=== PATIENT | male | born 1945 | race Caucasian/White ===

== ENCOUNTER 2018-06-22 15:27 | Emergency (ER) | payer MEDICARE ==
[~2018-06-22] VITALS: Ht 188 cm; Wt 90.7 kg
[2018-06-22 15:37] VITALS: BP 107/70
== END 2018-06-22 17:50 | disposition home or self-care (01) ==
LOC: ER 15:29
DX: S61.215D Laceration without foreign body of left ring finger without damage to nail, subsequent encounter (principal); X58.XXXD Exposure to other specified factors, subsequent encounter

== ENCOUNTER 2021-06-16 20:57 | Inpatient (IN) | payer MEDICARE, OTHER ==
[~2021-06-16] VITALS: Ht 188 cm; Wt 78.7 kg
[2021-06-16] MEDS ORDERED: dilTIAZem 25 MG/5 ML VIAL IV ONE (21:30)
[2021-06-16 22:13] LABS: Basophils # (auto) 0.1 10 ^3/uL (0-0.2); Basophils % (auto) 0.5 % (0.0-2.0); Eosinophils # (auto) 0 10 ^3/uL (0-0.8); Eosinophils % (auto) 0.1 % (0.0-7.0); Hematocrit 43.9 % (41.0-53.0); Hemoglobin 14.7 g/dL (13.5-17.5); Lymphocytes # (auto) 1.5 10 ^3/uL (0.4-5.4); Lymphocytes % (auto) 12.7 % (10.0-50.0); Mean Corpuscular Hemoglobin 29.4 pg (28.0-32.0); Mean Corpuscular Hgb Conc. 33.4 g/dL (32.0-36.0); Monocytes # (auto) 0.9 10 ^3/uL (0-1.3); Monocytes % (auto) 7.9 % (0.0-12.0); Neutrophils # (auto) 9.5 10 ^3/uL (1.6-8.6); Neutrophils % (auto) 78.8 % (37.0-80.0); Red Blood Cells 4.99 10^6/uL (4.5-5.90); Red Cell Distribution Width 15.8 % (11.8-14.3); White Blood Cell 12.1 10^3/uL (4.4-10.8)
[2021-06-16 22:26] LABS: Albumin 2.9 g/dL (3.4-5.0); Potassium 4.8 mmol/L (3.5-5.1)
[2021-06-16 22:30] LABS: Lactic Acid w/Reflex 2.2 mmol/L (0.4-2.0)
[2021-06-16 22:35] LABS: BUN/Creatinine Ratio 30.1; Bilirubin, Total 0.5 mg/dL (0.2-1.0); Calcium 8.5 mg/dL (8.5-10.1); Magnesium 2.2 mg/dL (1.6-2.6); Total Protein 6.9 g/dL (6.4-8.2)
[2021-06-16] MEDS ORDERED: DOXYCYCLINE 100MG/250ML 250 ML IV ONE (22:45)
[2021-06-16] MEDS ORDERED: ASPirin 325 MG TAB PO ONE (22:45)
[2021-06-16] MEDS ORDERED: PIPERACILLIN-TAZOB 3.375GM 100 ML IV ONE (22:45)
[2021-06-17] VITALS (20 sets, daily range): BP systolic 105–148; BP diastolic 61–84
[2021-06-17] LABS: Urine Bacteria NONE SEEN /hpf (None Seen); Urine Blood Negative /uL (Negative); Urine Hyaline Cast FEW /lpf (0 - 2); Urine Specific Gravity 1.014 (1.001-1.035); Urine WBC <1 /hpf (0 - 3)
[2021-06-17] MEDS ORDERED: SODIUM CHLORIDE 0.9% 500 ML IV ONE ×2 (01:45→03:45)
[2021-06-17] MEDS ORDERED: MORPHINE SULFATE INJECTION 2 MG/2 ML SYRG IV PRN (01:45)
[2021-06-17] MEDS ORDERED: ONDANSETRON HCL 4 MG/2 ML VIAL IV PRN (01:45)
[2021-06-17] MEDS: ENOXAPARIN SOD 100 MG/1 ML SYRINGE SC SCH ×2 (02:14→14:35)
[2021-06-17] MEDS ORDERED: SODIUM CHLORIDE 0.9% 1,000 ML IV SCH ×4 (02:30→11:30)
[2021-06-17] MEDS ORDERED: AMIODARONE HCL 150 MG in D5W 5% 100 ML IV ONE (07:00)
[2021-06-17] MEDS ORDERED: AMIODARONE 450mg/250ml AE 250 ML IV SCH ×2 (07:15→13:15)
[2021-06-17 08:22] LABS: Basophils # (auto) 0 10 ^3/uL (0-0.2); Basophils % (auto) 0.3 % (0.0-2.0); Eosinophils # (auto) 0 10 ^3/uL (0-0.8); Eosinophils % (auto) 0.2 % (0.0-7.0); Hematocrit 41.9 % (41.0-53.0); Lymphocytes # (auto) 1.4 10 ^3/uL (0.4-5.4); Lymphocytes % (auto) 13.4 % (10.0-50.0); Mean Corpuscular Hemoglobin 29.8 pg (28.0-32.0); Mean Corpuscular Hgb Conc. 33.4 g/dL (32.0-36.0); Mean Corpuscular Volume 89.3 fL (80.0-100.0); Monocytes # (auto) 0.7 10 ^3/uL (0-1.3); Monocytes % (auto) 6.6 % (0.0-12.0); Neutrophils # (auto) 8.2 10 ^3/uL (1.6-8.6); Neutrophils % (auto) 79.5 % (37.0-80.0); Nucleated Red Blood Cells % 0.1 %; Red Blood Cells 4.69 10^6/uL (4.5-5.90); White Blood Cell 10.4 10^3/uL (4.4-10.8)
[2021-06-17 08:42] LABS: Potassium 4.2 mmol/L (3.5-5.1)
[2021-06-17 08:50] LABS: Albumin 2.4 g/dL (3.4-5.0); BUN/Creatinine Ratio 31.7; Bilirubin, Total 0.7 mg/dL (0.2-1.0); Calcium 8.1 mg/dL (8.5-10.1)
[2021-06-17] MEDS ORDERED: cefTRIAXone 1GM/50ML D5W 50 ML IV SCH (09:00)
[2021-06-17] MEDS ORDERED: FUROSEMIDE 40 MG/4 ML VIAL IV ONE (09:45)
[2021-06-17] MEDS: AZITHROMYCIN 500MG/ 250ML 250 ML IV SCH (10:32)
[2021-06-17] MEDS: guaiFENesin 200 MG/10 ML UD PO PRN ×2 (13:47→19:55)
[2021-06-17] MEDS: AMIODARONE 450mg/250ml AE 250 ML IV SCH (14:18)
[2021-06-17] MEDS ORDERED: LORazepam 2MG/ML-1ML VIAL IV ONE (14:45)
[2021-06-17] MEDS ORDERED: DIGOXIN (250MCG/ML) 2 ML AMPULE IV ONE (17:15)
[2021-06-17] MEDS ORDERED: metOLazone 5 MG TAB PO ONE (17:15)
[2021-06-17] MEDS: FUROSEMIDE 40 MG/4 ML VIAL IV SCH (18:11)
[2021-06-17] MEDS ORDERED: CARVEDILOL 3.125 MG TAB PO SCH (22:00)
[2021-06-18] MEDS: guaiFENesin 200 MG/10 ML UD PO PRN ×3 (02:07→21:28)
[2021-06-18 05:00] VITALS: BP 111/68
[2021-06-18] MEDS: FUROSEMIDE 40 MG/4 ML VIAL IV SCH ×2 (05:05→10:47)
[2021-06-18] MEDS: ENOXAPARIN SOD 100 MG/1 ML SYRINGE SC SCH ×2 (05:06→18:25)
[2021-06-18] MEDS: AMIODARONE 450mg/250ml AE 250 ML IV SCH ×2 (05:09→20:33)
[2021-06-18 06:01] LABS: Basophils # (auto) 0 10 ^3/uL (0-0.2); Basophils % (auto) 0.2 % (0.0-2.0); Eosinophils # (auto) 0 10 ^3/uL (0-0.8); Eosinophils % (auto) 0.2 % (0.0-7.0); Hematocrit 41.2 % (41.0-53.0); Hemoglobin 13.7 g/dL (13.5-17.5); Lymphocytes # (auto) 1.5 10 ^3/uL (0.4-5.4); Lymphocytes % (auto) 14.7 % (10.0-50.0); Mean Corpuscular Hemoglobin 29.4 pg (28.0-32.0); Mean Corpuscular Hgb Conc. 33.3 g/dL (32.0-36.0); Mean Corpuscular Volume 88.3 fL (80.0-100.0); Monocytes # (auto) 0.6 10 ^3/uL (0-1.3); Monocytes % (auto) 6.1 % (0.0-12.0); Neutrophils # (auto) 8.3 10 ^3/uL (1.6-8.6); Neutrophils % (auto) 78.8 % (37.0-80.0); Red Blood Cells 4.66 10^6/uL (4.5-5.90); Red Cell Distribution Width 15.7 % (11.8-14.3); White Blood Cell 10.5 10^3/uL (4.4-10.8)
[2021-06-18 06:31] LABS: Potassium 4.4 mmol/L (3.5-5.1)
[2021-06-18 06:37] LABS: BUN/Creatinine Ratio 32.3; Calcium 8.2 mg/dL (8.5-10.1)
[2021-06-18 08:00] VITALS: BP 121/74
[2021-06-18 09:00] VITALS: BP 121/74
[2021-06-18] MEDS ORDERED: DIGOXIN 0.25 MG TAB PO ONE (09:15)
[2021-06-18] MEDS: AZITHROMYCIN 500MG/ 250ML 250 ML IV SCH (10:47)
[2021-06-18 10:48] LABS: INR 1.44 (0.9-1.15)
[2021-06-18] MEDS: SPIRONOLACTONE 25 MG TAB PO SCH (10:48)
[2021-06-18] MEDS: CARVEDILOL 3.125 MG TAB PO SCH ×2 (10:48→21:23)
[2021-06-18 13:00] VITALS: BP 101/70
[2021-06-18] MEDS ORDERED: metOLazone 5 MG TAB PO ONE (15:00)
[2021-06-18 17:00] VITALS: BP 113/73
[2021-06-18] MEDS: LORazepam 0.5 MG TAB PO PRN (21:28)
[2021-06-18 22:00] VITALS: BP 97/66
[2021-06-19] VITALS (7 sets, daily range): BP systolic 96–109; BP diastolic 46–72
[2021-06-19] MEDS: ENOXAPARIN SOD 100 MG/1 ML SYRINGE SC SCH ×2 (05:34→18:11)
[2021-06-19 05:40] LABS: Basophils # (auto) 0 10 ^3/uL (0-0.2); Basophils % (auto) 0.2 % (0.0-2.0); Eosinophils # (auto) 0 10 ^3/uL (0-0.8); Eosinophils % (auto) 0.4 % (0.0-7.0); Hematocrit 45.6 % (41.0-53.0); Hemoglobin 15.6 g/dL (13.5-17.5); Lymphocytes # (auto) 1.5 10 ^3/uL (0.4-5.4); Lymphocytes % (auto) 14.8 % (10.0-50.0); Mean Corpuscular Hemoglobin 30.1 pg (28.0-32.0); Mean Corpuscular Hgb Conc. 34.2 g/dL (32.0-36.0); Mean Corpuscular Volume 87.8 fL (80.0-100.0); Monocytes % (auto) 9.4 % (0.0-12.0); Neutrophils # (auto) 7.8 10 ^3/uL (1.6-8.6); Neutrophils % (auto) 75.2 % (37.0-80.0); Nucleated Red Blood Cells % 0.1 %; Red Blood Cells 5.19 10^6/uL (4.5-5.90); Red Cell Distribution Width 15.5 % (11.8-14.3); White Blood Cell 10.3 10^3/uL (4.4-10.8)
[2021-06-19 06:03] LABS: Potassium 3.8 mmol/L (3.5-5.1)
[2021-06-19 06:20] LABS: BUN/Creatinine Ratio 45.7; Calcium 8.9 mg/dL (8.5-10.1)
[2021-06-19] MEDS: AZITHROMYCIN 500MG/ 250ML 250 ML IV SCH (10:32)
[2021-06-19] MEDS: SPIRONOLACTONE 25 MG TAB PO SCH (10:32)
[2021-06-19] MEDS: FUROSEMIDE 40 MG/4 ML VIAL IV SCH (10:32)
[2021-06-19] MEDS: CARVEDILOL 3.125 MG TAB PO SCH ×2 (10:33→21:23)
[2021-06-19] MEDS: AMIODARONE 450mg/250ml AE 250 ML IV SCH (12:11)
[2021-06-19] MEDS: guaiFENesin 200 MG/10 ML UD PO PRN ×2 (12:12→19:43)
[2021-06-19] MEDS ORDERED: metOLazone 5 MG TAB PO ONE (15:00)
[2021-06-19] MEDS: LORazepam 0.5 MG TAB PO PRN (21:23)
[2021-06-20] MEDS: AMIODARONE 450mg/250ml AE 250 ML IV SCH (02:29)
[2021-06-20 05:00] VITALS: BP 103/61
[2021-06-20 05:08] LABS: Basophils # (auto) 0.1 10 ^3/uL (0-0.2); Basophils % (auto) 0.6 % (0.0-2.0); Eosinophils # (auto) 0 10 ^3/uL (0-0.8); Eosinophils % (auto) 0.4 % (0.0-7.0); Hematocrit 46.1 % (41.0-53.0); Hemoglobin 15.7 g/dL (13.5-17.5); Lymphocytes # (auto) 1.8 10 ^3/uL (0.4-5.4); Lymphocytes % (auto) 14.9 % (10.0-50.0); Mean Corpuscular Hemoglobin 29.8 pg (28.0-32.0); Mean Corpuscular Volume 87.7 fL (80.0-100.0); Monocytes # (auto) 1.1 10 ^3/uL (0-1.3); Monocytes % (auto) 9.3 % (0.0-12.0); Neutrophils # (auto) 8.8 10 ^3/uL (1.6-8.6); Neutrophils % (auto) 74.8 % (37.0-80.0); Red Blood Cells 5.26 10^6/uL (4.5-5.90); Red Cell Distribution Width 15.7 % (11.8-14.3); White Blood Cell 11.8 10^3/uL (4.4-10.8)
[2021-06-20] MEDS: ENOXAPARIN SOD 100 MG/1 ML SYRINGE SC SCH (05:59)
[2021-06-20 06:19] LABS: BUN/Creatinine Ratio 36.7; Calcium 8.6 mg/dL (8.5-10.1); Potassium 4.3 mmol/L (3.5-5.1)
[2021-06-20 08:00] VITALS: BP_SYST 106; BP_SYST 123; BP_DIAS 59; BP_DIAS 66
[2021-06-20] MEDS ORDERED: fentaNYL CITRATE 100 MCG/2 ML VL IV ONE (08:45)
[2021-06-20] MEDS ORDERED: MIDAZOLAM HCL 2MG/2ML 2ml VIAL (1mg/ml) IV ONE ×2 (08:45→09:45)
[2021-06-20] MEDS ORDERED: diphenhdrAMINE HCL 50 MG/1 ML VL IV ONE (08:45)
[2021-06-20] MEDS ORDERED: LIDOCAINE VISCOUS 2% 15ML UD ONE (09:40)
[2021-06-20] MEDS ORDERED: MIDAZOLAM HCL 2MG/2ML 2ml VIAL (1mg/ml) ONE (09:42)
[2021-06-20] MEDS ORDERED: LIDOCAINE VISCOUS 2% 15ML UD PO ONE (09:45)
[2021-06-20] MEDS: AZITHROMYCIN 500MG/ 250ML 250 ML IV SCH (10:00)
[2021-06-20] MEDS: FUROSEMIDE 40 MG/4 ML VIAL IV SCH (10:00)
[2021-06-20] MEDS: CARVEDILOL 3.125 MG TAB PO SCH (10:00)
[2021-06-20] MEDS: SPIRONOLACTONE 25 MG TAB PO SCH (10:00)
[2021-06-20 11:50] VITALS: BP 102/72
[2021-06-20 13:50] VITALS: BP 102/72
== END 2021-06-20 16:13 | disposition home health service (06) | DRG 291 ==
LOC: EDBD 20:57 → ER 20:57 → INTOOBSV 06-17 01:34 → TELE 06-17 01:34 → OBSVTOIN 06-17 01:34 → TELE-EAST 06-17 09:07 → TELE-CENTR 06-17 16:45
PROVIDERS: ADMIT Hospitalist; ATTEND Hospitalist
PROC: 5A2204Z Restoration of Cardiac Rhythm, Single (ICD-10-PCS; principal; 2021-06-17)
PROC: B245ZZ4 Ultrasonography of Left Heart, Transesophageal (ICD-10-PCS; 2021-06-20)
DX: I11.0 Hypertensive heart disease with heart failure (principal); N17.0 Acute kidney failure with tubular necrosis; J18.9 Pneumonia, unspecified organism; J96.01 Acute respiratory failure with hypoxia; J98.11 Atelectasis; I48.92 Unspecified atrial flutter; I50.43 Acute on chronic combined systolic (congestive) and diastolic (congestive) heart failure; I48.91 Unspecified atrial fibrillation; E86.0 Dehydration; I07.1 Rheumatic tricuspid insufficiency; K52.9 Noninfective gastroenteritis and colitis, unspecified; R79.89 Other specified abnormal findings of blood chemistry; Z20.822 Contact with and (suspected) exposure to COVID-19; Z79.899 Other long term (current) drug therapy; Z79.01 Long term (current) use of anticoagulants; Z79.891 Long term (current) use of opiate analgesic
CPT/HCPCS: 36415; 36600; 71045; 71250; 76705; 80048; 80053; 80061; 81001; 82805; 83036; 83605; 83735; 83880; 84484; 85025; 85610; 86850; 86900; 86901; 87040; 87426; 93005; 93306; 93312; 96361; 96365; 96366; 96367; 96368; 96372; 96375; 96376; G0378; J0696; J2250; J2543; J3490; J7060